=== PATIENT | male | born 1990 | race Caucasian/White ===

== ENCOUNTER 2017-07-16 22:46 | Emergency (ER) | payer BC ==
[~2017-07-16] VITALS: Ht 185.4 cm; Wt 81.6 kg
--- NOTE | 2017-07-16 23:13 | ER Report ---
History and Physical Time Seen By MD: 23:13 HPI/ROS CHIEF COMPLAINT: Rash on hands HISTORY OF PRESENT ILLNESS: 27-year-old male presents ambulatory to the ER complaining of rash on his hands for several months back to January. 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 Patient has a rash on his hands that he notes again this fine blisters on the lateral aspects of the fingers and now is spread over the entire back surface of his hands. He has a few fissures on the knuckles of the index finger. Patient notes no fever or chills. Patient denies history of eczema as a child. Allergies: Coded Allergies: No Known Drug Allergies (Unverified , 07/16/17) Home Meds Active Scripts Triamcinolone Acetonide 0.1% Oint 15 Gm Tube (TRIAMCINOLONE ACETONIDE 0.1% 15 GM TUBE) 15 Gm Oint...g., 1 GM TP BID for rash treatment, #60 TUBE Apply a thin layer to the affected areas twice daily for 1 week Prov:NARESH BLAS DO 07/16/17 Reviewed Nurses Notes: Yes Old Medical Records Reviewed: Yes Constitutional Vital Sign - Last 24 Hours 07/16/17 23:15 Temp 98.2 Pulse 73 Resp 14 B/P (MAP) 137/71 Pulse Ox 98 O2 Delivery Room Air Physical Exam General appearance: Alert no distress. Respiratory: Chest is non tender, lungs are clear to auscultation. Cardiac: Regular rate and rhythm Integument: Examination of bilateral hands reveals dyshidrotic eczema's appearing rash on the hands consistent with eczema DIFFERENTIAL DIAGNOSIS: After history and physical exam differential diagnosis was considered for eczema, dyshidrotic eczema, contact dermatitis, Medical Decision Making ED Course/Re-evaluation ED Course Patient was admitted to an examination room. H&P was done. The differential diagnoses was considered. On clinical examination, patient is a bilateral hand rash in the distribution is suspicious for dyshidrotic eczema. He describes onset as fine blisters that and up rupturing and then developing lichenification and spreading all over his digits in the back of his hands. It' s now extending up his arms. Patient be treated with triamcinolone ointment. He's advised compressive nitrile gloves at night. He is advised to follow-up with primary care if unimproved in one week. Decision to Disposition Date: Jul 16, 2017 Decision to Disposition Time: 23:18 Depart Departure Latest Vital Signs Vital Signs Date Time Temp Pulse Resp B/P (MAP) Pulse Ox O2 Delivery O2 Flow Rate FiO2 07/16/17 23:15 98.2 73 14 137/71 98 Room Air Impression: Primary Impression: Dyshidrotic eczema Condition: Improved Disposition: HOME OR SELF-CARE Referrals: HARI CLARKE MD New Scripts Triamcinolone Acetonide 0.1% Oint 15 Gm Tube (TRIAMCINOLONE ACETONIDE 0.1% 15 GM TUBE) 15 Gm Oint...g. 1 GM TP BID for rash treatment, #60 TUBE Apply a thin layer to the affected areas twice daily for 1 week Prov: NARESH BLAS DO 07/16/17 Patient Instructions: Dyshidrotic Eczema (ED) Additional Instructions: Apply a thin layer of the ointment twice daily to the affected areas on her hands Follow-up with the primary care physician on your paperwork. If you're unimproved in one week NARESH BLAS DO Jul 16, 2017 23:13
[2017-07-16 23:15] VITALS: BP 137/71
[2017-07-16] MEDS ORDERED: TRIA15OI20 TP (23:21)
[2017-07-16] MEDS ORDERED: TRIAMCINOLONE ACE 0.5% CR 15GM TP SCH (23:25)
== END 2017-07-16 23:38 | disposition home or self-care (01) ==
LOC: ER 23:03
DX: L30.1 Dyshidrosis [pompholyx] (principal)
CPT/HCPCS: 99281

== ENCOUNTER 2017-07-21 15:12 | Emergency (ER) | payer BC ==
[~2017-07-21 15:12] MED LIST: TRIA15OI20 TP
--- NOTE | 2017-07-21 16:07 | ER Report ---
History and Physical Time Seen By MD: 15:21 Hx. of Stated Complaint: RIGHT EAR PAIN FOR MORE THAN A WEEK. PAIN, HARD TO HEAR, OTC MEDS NOT WORKING HPI/ROS CHIEF COMPLAINT: Right ear pain HISTORY OF PRESENT ILLNESS: 19-year-old male patient presents to emergency room with complaint of right ear pain. Patient states this been going on for the past week. Patient states that he does have a history of cerumen impaction believe that that was likely the underlying cause. Patient did buy some over-the -counter cerumen drops at [facility] today and uses. He states that there was no improvement but did have persistent discomfort in the right ear. Patient denies having any fevers, chills, nausea, vomiting or diarrhea. Patient denies any trauma to the right ear. Allergies: Coded Allergies: No Known Drug Allergies (Unverified , 07/21/17) Home Meds Active Scripts Amoxicillin 500 Mg Tab (AMOXICILLIN 500 MG TAB) 500 Mg Tablet, 1 TAB PO Q8H, # 30 TAB Prov:JED GUERRA 07/21/17 Triamcinolone Acetonide 0.1% Oint 15 Gm Tube (TRIAMCINOLONE ACETONIDE 0.1% 15 GM TUBE) 15 Gm Oint...g., 1 GM TP BID for rash treatment, #60 TUBE Apply a thin layer to the affected areas twice daily for 1 week Prov:NARESH BLAS DO 07/16/17 Past Medical/Surgical History Patient has a past medical history of jaw fracture. Patient denies any surgical history. Reviewed Nurses Notes: Yes Hx Substance Use Disorder: No Hx Alcohol Use: No Constitutional Vital Sign - Last 24 Hours 07/21/17 07/21/17 15:16 16:39 Temp 98.1 Pulse 70 68 Resp 14 14 B/P (MAP) 125/79 118/86 (97) Pulse Ox 97 95 O2 Delivery Room Air Room Air Physical Exam General Appearance: The patient is alert, has no immediate need for airway protection and no current signs of toxicity. ENT: Tympanic membrane in the right ear is erythematous, I was unable to visualize the left tympanic membrane due to cerumen impaction. Mucous mucous membranes are moist. Respiratory: Chest is non tender, lungs are clear to auscultation. Cardiac: regular rate and rhythm DIFFERENTIAL DIAGNOSIS: After history and physical exam differential diagnosis was considered for cerumen impaction, otitis media. Medical Decision Making ED Course/Re-evaluation ED Course Patient was admitted to exam room, history and physical were obtained. Differential diagnoses were considered. On examination patient does have cerumen impaction in the left ear, the right ear I'm able to visualize the tympanic membrane and does look erythematous. Patient states he would like to have the cerumen removed. With patient consent the left ear was irrigated and was able to get out cerumen. Patient states he feels significantly better. We did irrigate the right ear, I was able to get the cerumen out. I again looked in the year and noted the patient has a right of T8 is immediate. I discussed the patient. We will go ahead and discharge patient home with amoxicillin. Patient is to follow-up with his primary care provider in the next week. He is return to emergency room if condition worsens. Patient verbalized understanding and agreement with plan. Procedure: Cerumen removal. After a physical exam was performed cerumen needed to be removed from the patient's ear canal. The indication of the procedure was cerumen impaction and inability to complete the ear exam. The procedure was performed with warm water irrigation. The patient tolerated the procedure well. The procedure was performed by myself. Decision to Disposition Date: Jul 21, 2017 Decision to Disposition Time: 16:29 Depart Departure Latest Vital Signs Vital Signs Date Time Temp Pulse Resp B/P (MAP) Pulse Ox O2 Delivery O2 Flow Rate FiO2 07/21/17 16:39 68 14 118/86 (97) 95 Room Air 07/21/17 15:16 98.1 Impression: Primary Impression: Otitis media Additional Impression: Impacted cerumen of both ears Condition: Improved Disposition: HOME OR SELF-CARE New Scripts Amoxicillin 500 Mg Tab (AMOXICILLIN 500 MG TAB) 500 Mg Tablet 1 TAB PO Q8H, #30 TAB Prov: JED GUERRA LARA 07/21/17 Patient Instructions: Otitis Media (ED) Additional Instructions: Increase fluid intake. Get plenty of rest. Follow up with your primary care provider in the next week. Take Tylenol or Ibuprofen as needed for pain or fevers. Return to the ER if condition worsens. Problem Qualifiers Primary Impression: Otitis media Otitis media type: serous Chronicity: acute Laterality: right Recurrence : not specified as recurrent Qualified Codes: H65.01 - Acute serous otitis media, right ear JED GUERRA Jul 21, 2017 16:07
[2017-07-21] MEDS ORDERED: AMOX500T10 PO (16:29)
[2017-07-21 16:39] VITALS: BP 118/86
== END 2017-07-21 16:43 | disposition home or self-care (01) ==
LOC: ER 15:21
DX: H65.01 Acute serous otitis media, right ear (principal); H61.23 Impacted cerumen, bilateral
CPT/HCPCS: 99283